=== PATIENT | female | born 1955 | race Caucasian/White ===

== ENCOUNTER 2025-01-09 20:18 | Inpatient (IN) | payer MEDICARE, MEDICAID ==
[~2025-01-09] VITALS: Ht 157.5 cm; Wt 53.5 kg
[~2025-01-09 20:18] MED LIST: ASPI-1497 PO; ATOR-2 PO; CLOP-31 PO; COR3 MT; FAMO-135 PO; GLIP10TA17 PO; INSU100I28 SQ; INSU100V3 SQ; LISI2.5T47 MT
[2025-01-09 20:21] VITALS: O2SAT 98
[2025-01-09] MEDS: MORPHINE SULFATE 4 MG/ML INJ (FOR IV/IM USE) IM ONE (22:40)
[2025-01-09] MEDS: ACETAMINOPHEN 325MG TABLET PO ONE (22:41)
[2025-01-09] MEDS: ONDANSETRON 4MG ODT PO ONE (22:41)
[2025-01-09 23:50] LABS: BASOPHILS % 1.0 % (0.0-2.0); EOSINOPHILS % 0.4 % (0.0-5.0); HEMATOCRIT. 31.2 % (36.0-48.0); HEMOGLOBIN. 10.2 g/dL (12.0-16.0); LYMPHOCYTES % 13.1 % (20.0-50.0); MEAN PLATELET VOLUME 9.2 fl (7.4-10.4); MONOCYTES % 2.7 % (2.0-8.0); NEUTROPHILS % 82.8 % (40.0-76.0); PLATELET 320 x1000/uL (130-400); RED BLOOD CELL COUNT 3.64 mill/uL (4.2-5.4); RED CELL DISTRIBUTION WIDTH 15.5 % (11.6-14.6)
[2025-01-10] VITALS (7 sets, daily range): BP systolic 100–155; BP diastolic 41–76; PULSE 65–96; RESP 17–20; TEMP 36.2–37.4; O2SAT 95–100
[2025-01-10] MEDS ORDERED: HYDRALAZINE 20MG/ML VIAL IV PRN
[2025-01-10] MEDS ORDERED: ONDANSETRON HCL 4MG/2ML INJ IV PRN
[2025-01-10] MEDS ORDERED: IPRATROPIUM/ALBUTEROL 0.5-3(2.5)MG/3ML NEB HHN PRN
[2025-01-10] MEDS ORDERED: DOCUSATE SODIUM 100MG CAPSULE PO PRN
[2025-01-10] MEDS ORDERED: ACETAMINOPHEN 325MG TABLET PO PRN
[2025-01-10] MEDS ORDERED: GUAIFENESIN 200MG/10ML SUGAR FREE UDC PO PRN
[2025-01-10 00:04] LABS: TROPONIN I HIGH SENSITIVITY 16 ng/L (3.0-34); UREA NITROGEN BLOOD 35 mg/dL (9-23)
[2025-01-10 00:07] LABS: CREATININE 2.1 mg/dL (0.6-1.0)
[2025-01-10] MEDS ORDERED: DEXTROSE 50% WATER 50ML SYRINGE IV PRN (00:45)
[2025-01-10] MEDS ORDERED: CEFTRIAXONE 1,000 MG in DEXT 5% WATER 100 ML IV SCH (02:30)
[2025-01-10] MEDS ORDERED: HYDROCODONE/ACETAMINOPHEN 7.5/325MG TABLET PO PRN (02:30)
[2025-01-10] MEDS ORDERED: NALOXONE HCL 0.4MG/ML VIAL IV PRN (02:45)
[2025-01-10] MEDS: SODIUM CHLORIDE 0.9% 1,000 ML IV SCH (03:24)
[2025-01-10] MEDS: CEFTRIAXONE 1GM/50ML 50ML IV SCH (03:38)
[2025-01-10] MEDS: INSULIN LISPRO (HIGH DOSE) 100 UNITS/ML SUBCUT SCH (06:51)
[2025-01-10] MEDS: BLOOD SUGAR DIAGNOSTIC STRIP TEST SCH (06:51)
[2025-01-10] MEDS ORDERED: INSULIN LISPRO 100 UNITS/ML SUBCUT SCH ×2 (07:40)
[2025-01-10] MEDS: PANTOPRAZOLE SODIUM 40 MG/VIAL IV SCH (08:42)
[2025-01-10] MEDS: ASPIRIN 81MG EC TABLET PO SCH (10:00)
[2025-01-10] MEDS: LISINOPRIL 2.5MG TABLET PO SCH (10:00)
[2025-01-10] MEDS: CLOPIDOGREL 75MG TABLET PO SCH (10:00)
[2025-01-10] MEDS: CARVEDILOL 3.125 MG TABLET PO SCH (10:00)
[2025-01-10] MEDS ORDERED: ATORVASTATIN CALCIUM 40MG TABLET PO SCH (21:00)
[2025-01-10] MEDS ORDERED: INSULIN GLARGINE 100 UNITS/ML SUBCUT SCH (22:00)
== END 2025-01-10 22:10 | disposition short-term general hospital (02) | DRG 536 ==
LOC: ER 20:18 → 8WST 23:12 → EDBEDREQTM 23:14 → EDBEDREQ 23:14 → ENRESERV 01-10 00:30
PROVIDERS: ADMIT Internal Medicine; ATTEND Internal Medicine
DX: S72.142A Displaced intertrochanteric fracture of left femur, initial encounter for closed fracture (principal); E87.1 Hypo-osmolality and hyponatremia; N17.9 Acute kidney failure, unspecified; E11.22 Type 2 diabetes mellitus with diabetic chronic kidney disease; E78.5 Hyperlipidemia, unspecified; I12.9 Hypertensive chronic kidney disease with stage 1 through stage 4 chronic kidney disease, or unspecified chronic kidney disease; I25.10 Atherosclerotic heart disease of native coronary artery without angina pectoris; J45.909 Unspecified asthma, uncomplicated; M19.90 Unspecified osteoarthritis, unspecified site; Z20.822 Contact with and (suspected) exposure to COVID-19; Z66 Do not resuscitate; D72.829 Elevated white blood cell count, unspecified; N18.9 Chronic kidney disease, unspecified; Z79.02 Long term (current) use of antithrombotics/antiplatelets; Z79.4 Long term (current) use of insulin; Z79.899 Other long term (current) drug therapy; Z87.440 Personal history of urinary (tract) infections; Z95.1 Presence of aortocoronary bypass graft; W10.9XXA Fall (on) (from) unspecified stairs and steps, initial encounter; Y93.89 Activity, other specified; Y92.89 Other specified places as the place of occurrence of the external cause; Y99.8 Other external cause status
CPT/HCPCS: 36415; 71045; 73502; 73552; 73560; 80048; 82550; 82962; 83036; 83605; 83930; 84145; 84484; 85025; 87426; 93005; 99285; J0696; J1815; J2270; J2470; Q0162

== ENCOUNTER 2025-05-02 10:50 | Emergency (ER) | payer MEDICARE, MEDICAID ==
[~2025-05-02] VITALS: Ht 162.6 cm; Wt 70.0 kg
[2025-05-02 11:53] LABS: BASOPHILS % 0.8 % (0.0-2.0); EOSINOPHILS % 0.0 % (0.0-5.0); HEMATOCRIT. 36.1 % (36.0-48.0); HEMOGLOBIN. 11.1 g/dL (12.0-16.0); LYMPHOCYTES % 10.0 % (20.0-50.0); MEAN PLATELET VOLUME 8.9 fl (7.4-10.4); MONOCYTES % 5.9 % (2.0-8.0); NEUTROPHILS % 83.3 % (40.0-76.0); PLATELET 331 x1000/uL (130-400); RED BLOOD CELL COUNT 4.21 mill/uL (4.2-5.4); RED CELL DISTRIBUTION WIDTH 16.7 % (11.6-14.6)
[2025-05-02 12:09] LABS: INR 1.1
[2025-05-02 12:13] LABS: CREATININE 2.2 mg/dL (0.6-1.0); TROPONIN I HIGH SENSITIVITY 28 ng/L (3.0-34); UREA NITROGEN BLOOD 23 mg/dL (9-23)
[2025-05-02 12:15] LABS: ASPARTATE AMINOTRANSFERASE 12 IU/L (<34); BILIRUBIN DIRECT 0.1 mg/dL (<=3.0); BILIRUBIN TOTAL 0.4 mg/dL (0.1-1.0); PROTEIN TOTAL 7.9 g/dL (6.0-8.3)
[2025-05-02] MEDS: IPRATROPIUM BROMIDE (0.02%) 0.5MG/2.5ML NEB HHN ONE (12:23)
[2025-05-02] MEDS: ALBUTEROL (0.083%) 2.5MG/3ML NEB HHN ONE (12:23)
[2025-05-02 12:24] VITALS: PULSE 86; RESP 18; O2SAT 95
[2025-05-02] MEDS: ONDANSETRON HCL 4MG/2ML INJ IV ONE (12:25)
[2025-05-02] MEDS: SODIUM CHLORIDE 0.9% 1,000 ML IV ONE (13:49)
[2025-05-02 14:09] LABS: TROPONIN I HIGH SENSITIVITY 23 ng/L (3.0-34)
[2025-05-02] MEDS ORDERED: METO-293 MT (15:23)
[2025-05-02] MEDS ORDERED: ONDA-241 MT (15:23)
[2025-05-02 16:03] VITALS: BP 138/57; PULSE 89; RESP 15; TEMP 36.6; O2SAT 97
== END 2025-05-02 16:04 | disposition home or self-care (01) ==
LOC: ER 10:50 → CANBEDREQ 15:57 → ER 16:04
DX: R11.2 Nausea with vomiting, unspecified (principal); R06.02 Shortness of breath; E11.9 Type 2 diabetes mellitus without complications; I10 Essential (primary) hypertension; J45.909 Unspecified asthma, uncomplicated; Z98.890 Other specified postprocedural states; Z79.899 Other long term (current) drug therapy; Z79.84 Long term (current) use of oral hypoglycemic drugs; Z79.82 Long term (current) use of aspirin; Z79.02 Long term (current) use of antithrombotics/antiplatelets
CPT/HCPCS: 99285; 74176; 96374; 71045; 96361; 80076; 80048; 83880; 83690; 83735; 85025; 85610; 84484; 36415; 94640; 93005; J2405; J7030; 94070; A4606

== ENCOUNTER 2025-05-20 09:49 | Emergency (ER) | payer MEDICARE, MEDICAID ==
[~2025-05-20] VITALS: Ht 165.1 cm; Wt 69.0 kg
[~2025-05-20 09:49] MED LIST changes: +METO-293 MT; +ONDA-241 MT
[2025-05-20 10:04] VITALS: O2SAT 98
[2025-05-20] MEDS ORDERED: BENZ1LOZ73 MM (10:29)
[2025-05-20] MEDS ORDERED: ACET-2708 MT (10:29)
[2025-05-20] MEDS: ACETAMINOPHEN 500MG TABLET PO ONE (10:39)
[2025-05-20 10:47] VITALS: BP 124/62; PULSE 81; RESP 16; TEMP 36.5; O2SAT 98
== END 2025-05-20 10:56 | disposition home or self-care (01) ==
LOC: ER 09:49
DX: J02.8 Acute pharyngitis due to other specified organisms (principal); E11.9 Type 2 diabetes mellitus without complications; I10 Essential (primary) hypertension; J45.909 Unspecified asthma, uncomplicated; Z79.899 Other long term (current) drug therapy
CPT/HCPCS: 87070; 87430; 99283